=== PATIENT | female | born 1950 | race African-American/Black ===

== ENCOUNTER → 2019-03-29 12:22 | Outpatient (CLI) | payer MEDICARE ==
[2014-09-13 08:47] VITALS: BMI 33.9
[~2019-03-29 12:22] MED LIST: BAYER CHEWABLE81 MG PO; BUMETANIDE0.5 MG PO; BUSPAR5 MG PO; CELEXA40 MG PO; COLACE100 MG PO; FERREX 150 FO1 UDCAP PO; MULTI-DAY VITAM1 TAB PO; NORVASC5 MG PO; POTASSIUM99 M1 PO; TRANDATE200 MG PO
== END | disposition home or self-care (01) ==
LOC: D.HCCECHO 12:22 → D.HCCARDIO 13:00 → D.HCCECHO 13:00
PROVIDERS: ATTEND Internal Medicine Cardiovascular Disease
DX: R07.9 Chest pain, unspecified (principal)

== ENCOUNTER → 2020-03-14 09:31 | Outpatient (CLI) | payer MEDICARE ==
[2014-09-13 08:47] VITALS: BMI 33.9
== END | disposition home or self-care (01) ==
LOC: D.HCCECHO 09:31
PROVIDERS: ATTEND Internal Medicine Cardiovascular Disease
DX: I34.0 Nonrheumatic mitral (valve) insufficiency (principal)